=== PATIENT | male | born 1960 | race Caucasian/White ===

== ENCOUNTER 2016-10-10 20:06 | Emergency (ER) | payer BC ==
[2016-10-10 20:17] VITALS: BP 116/66
--- NOTE | 2016-10-10 21:41 | RAD ---
INDICATION: 2 weeks of right shoulder pain with tingling down the right arm COMPARISON: None. TECHNIQUE: 4 views of the right shoulder were obtained. FINDINGS: The adequately corticated bones are in normal alignment. Joint spaces appear maintained. No fracture, dislocation or focal bony abnormality is seen. IMPRESSION: Normal radiograph of the right shoulder. If the patient's symptoms persist, follow-up imaging is recommended.
[2016-10-10] MEDS ORDERED: traMADol TAB* 50 MG PO ONE (21:51)
--- NOTE | 2016-10-10 22:41 | UC ---
Pita Knapp Alfonso, scribed for Oswaldo Fleming MD on 10/10/16 at 2106 . General HPI - HPI Summary HPI Summary: This patient is a 56 year old F presenting to [facility] with a chief complaint of neck and right-sided shoulder pain since 10 days ago. The CC is described as worsening and throbbing. Pt went to a chiropractor one week ago for this complaint. His profession involves manual labor. Pt rates the pain 6/10 in severity. Symptoms aggravated by movement and alleviated by nothing. Pt also reports a wasp sting one week ago. Pt medications reviewed this visit. - History of Current Complaint Chief Complaint: UCGeneralIllness Stated Complaint: BACK AND SHOULDER INJURY Time Seen by Provider: 10/10/16 20:17 Hx Obtained From: Patient Onset/Duration: Sudden Onset, Lasting Days - 10, Worse Since Timing: Constant Onset Severity: Moderate Current Severity: Moderate Pain Intensity: 6 - 6/10 Pain Location at: Neck and right shoulder Character: Throbbing Aggravating: Movement Alleviating: Nothing Associated Signs & Symptoms: Positive: Other - Neck and right shoulder pain - Allergy/Home Medications Allergies/Adverse Reactions: Allergies Allergy/AdvReac Type Severity Reaction Status Date / Time Metoprolol [From Toprol XL] Allergy Intermediate Hives Verified 10/10/16 20:09 Adhesive Tape Allergy Unknown Rash Verified 10/10/16 20:09 PMH/Surg Hx/FS Hx/Imm Hx - Surgical History Surgical History: Yes Surgery Procedure, Year, and Place: 2 inguinal hernia repairs. CARDIAC CATH X2 states 5 years ago - Family History Known Family History: Positive: Cardiac Disease - Social History Alcohol Use: None Substance Use Type: None Smoking Status (MU): Never Smoked Tobacco Have You Smoked in the Last Year: No Review of Systems Constitutional: Other - Positive wasp sting one week ago; Negative fever Musculoskeletal: Other: - Positive neck pain and right-sided shoulder pain All Other Systems Reviewed And Are Negative: Yes Physical Exam Triage Information Reviewed: Yes Appearance: Well-Appearing, No Pain Distress Vital Signs: Initial Vital Signs Temp 98.6 F 10/10/16 20:11 Pulse 70 10/10/16 20:11 Resp 18 10/10/16 20:11 BP 116/66 10/10/16 20:11 Pulse Ox 98 10/10/16 20:11 Vital Signs Reviewed: Yes Eyes: Positive: Other: - EOMI and SKY ENT: Positive: Normal ENT inspection Neck: Positive: Supple, Nontender Respiratory: Positive: Chest non-tender, Lungs clear Cardiovascular: Positive: RRR Abdomen Description: Positive: Nontender, Soft Bowel Sounds: Positive: Present Musculoskeletal: Positive: Other: - Neck full ROM. Tender to palpation at right shoulder joint. Good pulses and sensations. Spar Finisher strength 5/5. Extension L is 160 degrees and R is 120 degrees. Abduction L is 90 degrees R is 60 degrees. Internal rotation L is T9 and R is L1. Neurological: Positive: Alert Psychological: Positive: Age Appropriate Behavior Skin Exam: Normal Diagnostics - Radiology Shoulder X-Ray Radiology Interpretation Completed By: Radiologist - Normal radiograph of the right shoulder. If the patient's symptoms persist, follow-up imaging is recommended. Course/Dx - Course Course Of Treatment: X-RAY RESULTS DISCUSSED WITH PATIENT. RX TRAMADOL. F/U PMD. - Differential Dx - Multi-Symptom Provider Diagnoses: RIGHT SHOULDER PAIN Discharge - Discharge Plan Condition: Stable Disposition: HOME Prescriptions: traMADol TAB* [Ultram*] 50 mg PO Q6HR PRN #20 tab MDD 4 PRN Reason: Pain Patient Education Materials: Shoulder Pain (ED) Referrals: Homer Rincon MD [Medical Doctor] - Additional Instructions: FOLLOW UP WITH YOUR DOCTOR. DO THE RANGE OF MOTION EXERCISES DESCRIBED. GET RECHECKED FOR ANY WORSENING OF YOUR CONDITION OR QUESTIONS OR CONCERNS. The documentation as recorded by the Pita biswas Alfonso accurately reflects the service I personally performed and the decisions made by me, Oswaldo Fleming MD.
== END 2016-10-10 22:00 | disposition home or self-care (01) ==
LOC: UCEAST 20:06
DX: M25.511 Pain in right shoulder (principal)
CPT/HCPCS: 99212; A9270-GY; G0463